=== PATIENT | female | born 1950 ===

== ENCOUNTER 2020-06-12 06:00 | Outpatient (RCR) | payer MEDICARE, OTHER, SELFPAY | END 2020-07-01 23:59 | disposition home or self-care (01) | LOC: MOT 06:00 | PROVIDERS: PCP Physician Assistant Medical; Referring Provider Neurological Surgery; Visit Provider Neurological Surgery | DX: G56.02 Carpal tunnel syndrome, left upper limb (principal) | CPT/HCPCS: 97018; 97022; 97110; 97140; 97166 ==

== ENCOUNTER → 2021-03-31 13:07 | Outpatient (BNVA) | payer MEDICARE, OTHER, SELFPAY | PROVIDERS: PCP Physician Assistant Medical; Referring Provider Internal Medicine; Visit Provider Podiatrist Foot & Ankle Surgery | DX: M79.672 Pain in left foot (principal) | CPT/HCPCS: 73630 ==